=== PATIENT | female | born 1985 | race Hispanic/Latino ===

== ENCOUNTER 2019-11-22 09:13 | Outpatient (CLI) | payer BC, OTHER ==
--- NOTE | 2019-11-22 12:42 | RAD ---
LUMBAR SPINE 3 VIEWS: HISTORY: Back pain. FINDINGS: Lumbar vertebrae maintain normal height and alignment. Disk spaces are normally maintained . No evidence of spondylolisthesis. IMPRESSION: Unremarkable lumbar spine. POS: [facility]
== END 2019-11-22 09:14 | disposition home or self-care (01) ==
LOC: SCSRAD 09:13
PROVIDERS: ATTEND Family Medicine
DX: M54.5 Low back pain (principal)
CPT/HCPCS: 72100

== ENCOUNTER 2021-11-04 08:18 | Outpatient (CLI) | payer BC | END 2021-11-04 08:19 | disposition home or self-care (01) | LOC: BICMAMMO 08:18 | PROVIDERS: ATTEND Physician Assistant | DX: N64.4 Mastodynia (principal) | CPT/HCPCS: 77066; G0279 ==